=== PATIENT | male | born 1980 | race Caucasian/White ===

== ENCOUNTER 2020-07-16 10:54 | Inpatient (IN) | payer OTHER, SELFPAY ==
[~2020-07-16] VITALS: Ht 167.6 cm; Wt 104.4 kg
[2020-07-16 11:49] LABS: PLATELET COUNT 131 x10^3mcL (130-400); RED CELL DISTRIBUTION WIDTH 12.6 % (11.5-14.5)
[2020-07-16 12:00] LABS: CALCIUM 8.3 mg/dL (8.5-10.1); CHLORIDE SERUM 100 mmol/L (98-107); CREATININE SERUM 0.9 mg/dL (0.7-1.3); GFR1 > 60 mL/min; GLUCOSE SERUM 101 mg/dL (74-106); POTASSIUM SERUM 4.3 mmol/L (3.5-5.1); SODIUM SERUM 136 mmol/L (136-145)
[2020-07-16 12:04] LABS: ALKALINE PHOSPHATASE 66 U/L (46-116); ALT/SGPT 15 U/L (16-63); AST/SGOT 25 U/L (15-37); BILIRUBIN TOTAL 0.71 mg/dL (0.20-1.00); C REACTIVE PROTEIN 9.7 mg/dL (<=0.9); LACTIC DEHYDROGENASE (LDH) 266 U/L (100-190); TOTAL PROTEIN, SERUM 8.2 g/dL (6.4-8.2)
[2020-07-16 12:08] LABS: ALBUMIN 3.3 g/dL (3.4-5.0)
[2020-07-16] MEDS ORDERED: BUNAVAIL MM (13:02)
[2020-07-16 13:05] LABS: MONOCYTE 10 % (0-7); SEGMENTED NEUTROPHILS 66 % (37-75); rbc morphology (normal/abnorm) NORMAL (NORMAL)
[2020-07-16 13:48] VITALS: BP 127/84
[2020-07-16 14:42] VITALS: BP 127/84
[2020-07-16 16:29] VITALS: BP 126/75
[2020-07-16 21:15] VITALS: BP 138/78
[2020-07-17 04:18] VITALS: BP 129/71
[2020-07-17 07:11] LABS: PLATELET COUNT 148 x10^3mcL (130-400); RED CELL DISTRIBUTION WIDTH 12.6 % (11.5-14.5)
[2020-07-17 07:52] LABS: CALCIUM 8.5 mg/dL (8.5-10.1); CARBON DIOXIDE 25.4 mmol/L (21-32); CHLORIDE SERUM 103 mmol/L (98-107); CREATININE SERUM 0.7 mg/dL (0.7-1.3); GFR1 > 60 mL/min; GLUCOSE SERUM 151 mg/dL (74-106); POTASSIUM SERUM 4.7 mmol/L (3.5-5.1); SODIUM SERUM 139 mmol/L (136-145)
[2020-07-17 07:53] LABS: BILIRUBIN DIRECT 0.15 mg/dL (0.0-0.2); BILIRUBIN TOTAL 0.43 mg/dL (0.20-1.00)
[2020-07-17 07:55] LABS: ALBUMIN 3.3 g/dL (3.4-5.0); TOTAL PROTEIN, SERUM 8.6 g/dL (6.4-8.2)
[2020-07-17 08:20] VITALS: BP 140/64
[2020-07-17 10:51] LABS: BAND NEUTROPHIL 0 % (0-10); BASOPHIL 0 % (0-2); MONOCYTE 6 % (0-7); PLATELET MORPHOLOGY PLATELETS NORMAL; SEGMENTED NEUTROPHILS 64 % (37-75)
[2020-07-17 11:50] VITALS: BP 130/78
[2020-07-17 16:52] VITALS: BP 131/72
[2020-07-17 20:48] VITALS: BP 139/67
[2020-07-18 05:38] VITALS: BP 148/81
[2020-07-18 07:55] LABS: BASOPHIL % 0.2 % (0-2); PLATELET COUNT 165 x10^3mcL (130-400); RED CELL DISTRIBUTION WIDTH 12.8 % (11.5-14.5)
[2020-07-18 08:34] LABS: CALCIUM 8.9 mg/dL (8.5-10.1); CARBON DIOXIDE 24.9 mmol/L (21-32); CHLORIDE SERUM 106 mmol/L (98-107); CREATININE SERUM 0.7 mg/dL (0.7-1.3); GFR1 > 60 mL/min; GLUCOSE SERUM 173 mg/dL (74-106); POTASSIUM SERUM 4.8 mmol/L (3.5-5.1); SODIUM SERUM 142 mmol/L (136-145)
[2020-07-18 08:40] VITALS: BP 130/70
[2020-07-18 08:45] LABS: BILIRUBIN DIRECT 0.02 mg/dL (0.0-0.2); BILIRUBIN TOTAL 0.43 mg/dL (0.20-1.00)
[2020-07-18 08:47] LABS: TOTAL PROTEIN, SERUM 8.4 g/dL (6.4-8.2)
[2020-07-18 10:12] LABS: microscopic required? YES; urine erythrocyte NEGATIVE (NEGATIVE)
[2020-07-18 12:01] VITALS: BP 131/69
[2020-07-18 16:29] VITALS: BP 126/70
[2020-07-18 21:17] VITALS: BP 108/69
[2020-07-19 05:59] VITALS: BP 127/62
[2020-07-19 08:12] LABS: BASOPHIL % 0.1 % (0-2); PLATELET COUNT 186 x10^3mcL (130-400); RED CELL DISTRIBUTION WIDTH 12.6 % (11.5-14.5)
[2020-07-19 08:17] VITALS: BP 132/60
[2020-07-19 08:22] LABS: ALT/SGPT 16 U/L (16-63); AST/SGOT 14 U/L (15-37); CALCIUM 8.8 mg/dL (8.5-10.1); CARBON DIOXIDE 19.9 mmol/L (21-32); CHLORIDE SERUM 106 mmol/L (98-107); CREATININE SERUM 0.6 mg/dL (0.7-1.3); GFR1 > 60 mL/min; GLUCOSE SERUM 184 mg/dL (74-106); POTASSIUM SERUM 4.1 mmol/L (3.5-5.1); SODIUM SERUM 140 mmol/L (136-145)
[2020-07-19 11:55] VITALS: BP 130/67
[2020-07-19 16:19] VITALS: BP 135/71
[2020-07-19 19:42] VITALS: BP 134/78
[2020-07-19 23:26] VITALS: Ht 167.6 cm; Wt 104.4 kg
[2020-07-20 05:20] VITALS: BP 110/54
[2020-07-20 06:56] LABS: BASOPHIL % 0.2 % (0-2); PLATELET COUNT 219 x10^3mcL (130-400); RED CELL DISTRIBUTION WIDTH 12.9 % (11.5-14.5)
[2020-07-20 07:25] LABS: CHLORIDE SERUM 104 mmol/L (98-107); CREATININE SERUM 0.8 mg/dL (0.7-1.3); GFR1 > 60 mL/min; GLUCOSE SERUM 189 mg/dL (74-106); POTASSIUM SERUM 4.2 mmol/L (3.5-5.1); SODIUM SERUM 140 mmol/L (136-145)
[2020-07-20 08:49] VITALS: BP 122/65
[2020-07-20 12:32] VITALS: BP 133/78
[2020-07-20 13:11] LABS: ALT/SGPT 25 U/L (16-63); AST/SGOT 24 U/L (15-37)
[2020-07-20 16:19] VITALS: BP 151/89
[2020-07-20 19:34] VITALS: BP 141/87
[2020-07-21 04:34] VITALS: BP 134/65
[2020-07-21 06:55] LABS: BASOPHIL % 0.1 % (0-2); PLATELET COUNT 231 x10^3mcL (130-400); RED CELL DISTRIBUTION WIDTH 12.6 % (11.5-14.5)
[2020-07-21 07:16] LABS: CALCIUM 8.7 mg/dL (8.5-10.1); CARBON DIOXIDE 28.6 mmol/L (21-32); CHLORIDE SERUM 103 mmol/L (98-107); CREATININE SERUM 0.8 mg/dL (0.7-1.3); GFR1 > 60 mL/min; GLUCOSE SERUM 206 mg/dL (74-106); POTASSIUM SERUM 4.1 mmol/L (3.5-5.1); SODIUM SERUM 137 mmol/L (136-145)
[2020-07-21 09:40] VITALS: BP 128/74
[2020-07-21 11:47] VITALS: BP 128/74
[2020-07-21 12:10] VITALS: BP 124/73
== END 2020-07-21 13:38 | disposition other institution (70) | DRG 177 ==
LOC: ED 10:54 → DU 12:45
PROVIDERS: Emergency Medicine; Internal Medicine Infectious Disease; ADMIT Internal Medicine; ATTEND Internal Medicine
PROC: XW033E5 Introduction of Remdesivir Anti-infective into Peripheral Vein, Percutaneous Approach, New Technology Group 5 (ICD-10-PCS; principal; 2020-07-16)
PROC: XW13325 Transfusion of Convalescent Plasma (Nonautologous) into Peripheral Vein, Percutaneous Approach, New Technology Group 5 (ICD-10-PCS; 2020-07-16)
DX: U07.1 COVID-19 (principal); J18.9 Pneumonia, unspecified organism; J96.01 Acute respiratory failure with hypoxia; I50.9 Heart failure, unspecified; I11.0 Hypertensive heart disease with heart failure; I48.91 Unspecified atrial fibrillation; I25.10 Atherosclerotic heart disease of native coronary artery without angina pectoris; E78.5 Hyperlipidemia, unspecified; F15.99 Other stimulant use, unspecified with unspecified stimulant-induced disorder; D72.819 Decreased white blood cell count, unspecified; I25.2 Old myocardial infarction; Z79.899 Other long term (current) drug therapy; Z79.891 Long term (current) use of opiate analgesic
CPT/HCPCS: 36600; 83880; 85378; 87804; G0378; J1650; J2060; J3535; J7030; J8540; Q0092